=== PATIENT | male | born 1950 | race Caucasian/White ===

== ENCOUNTER → 2017-10-20 | Outpatient (CLI) | payer OTHER ==
[2017-10-20 11:46] LABS: HEMOGLOBIN 13.7 g/dl (14.0-18.0); MEAN CORPUSCULAR HGB 28.7 pg (27.0-31.0); MEAN CORPUSCULAR HGB CONC 31.9 g/dl (33.0-37.0); MEAN PLATELET VOLUME 10.8 fl (9.6-12.3); PLATELET COUNT AUTOMATED 294 10*3/uL (130-400); RED BLOOD COUNT 4.78 10*6/uL (4.50-5.90); RED CELL DISTRI WIDTH 13.1 % (0-14.5); WHITE BLOOD COUNT 12.6 10*3/uL (4.8-10.8)
[2017-10-20 12:14] LABS: ALBUMIN 3.7 gm/dl (3.1-4.5); ALKALINE PHOSPHATASE 117 U/L (45-117); BUN 12 mg/dl (7-24); CHLORIDE 107 mmol/L (98-107); CREATININE 0.97 mg/dL (0.70-1.30); POTASSIUM 3.8 mmol/L (3.5-5.1); SGOT/AST 12 IU/L (3-35); SGPT/ALT 21 U/L (12-78); SODIUM 141 mmol/L (136-145); TOTAL PROTEIN 7.4 gm/dL (6.4-8.2)
[2017-10-20 12:34] LABS: PLATELET SUFFICIENCY NORMAL (NORMAL); TOTAL CELLS COUNTED 100 #CELLS
== END | disposition home or self-care (01) ==
LOC: LAB 11:27
PROVIDERS: Urology
DX: Z12.5 Encounter for screening for malignant neoplasm of prostate (principal); I10 Essential (primary) hypertension; D40.0 Neoplasm of uncertain behavior of prostate

== ENCOUNTER → 2017-11-02 | Outpatient (CLI) | payer OTHER | END | disposition home or self-care (01) | LOC: CT 11-01 14:00 | DX: N20.0 Calculus of kidney (principal); K76.89 Other specified diseases of liver; Z90.89 Acquired absence of other organs ==

== ENCOUNTER → 2019-07-19 | Outpatient (CLI) | payer MEDICARE | END | disposition home or self-care (01) | LOC: CT 09:33 | DX: J90 Pleural effusion, not elsewhere classified (principal); J84.10 Pulmonary fibrosis, unspecified; K76.89 Other specified diseases of liver; I25.10 Atherosclerotic heart disease of native coronary artery without angina pectoris; I05.9 Rheumatic mitral valve disease, unspecified; J98.11 Atelectasis ==

== ENCOUNTER → 2020-07-26 | Outpatient (CLI) | payer MEDICARE | END | disposition home or self-care (01) | LOC: CT 10:38 | PROVIDERS: ATTEND Internal Medicine Critical Care Medicine | DX: R91.8 Other nonspecific abnormal finding of lung field (principal) ==